=== PATIENT | female | born 1935 | race Caucasian/White ===

== ENCOUNTER 2018-11-18 12:39 | Inpatient (IN) | payer OTHER ==
[2018-11-18] MEDS ORDERED: SODIUM CHLORIDE 0.9% 1000 ML INFUS.BAG IV ONE (13:04)
[2018-11-18 13:07] VITALS: BMI 25.8
[2018-11-18] MEDS ORDERED: ONDANSETRON 4 MG/2 ML VIAL IVPUSH ONE (13:32)
--- NOTE | 2018-11-18 13:39 | PDOC ---
History of Present Illness - General Chief Complaint: Weakness Stated Complaint: WEAKNESS, N/V/D History Source: Patient, Family Exam Limitations: No Limitations - History of Present Illness Initial Comments: 11/18/18 13:35 83 yo F h/o n/v d here from [facility] assisted living. pt states sxs started three days ago, intially with vomiting, followed by dry heaving, then loose watery stools. pt states she took peptobismol, and stool and emesis have since been black. no bright red blood noted. no abd pain. does c/o low back pain. pt states today she was unabel to get out of bed due to weakness. weakness is described as generalized, nonfocal with asociated lightheadedness. no vertigo. no cp no cough but does feel sob. no fever, does report chills. no dysuria. no h /o abd surgeries. Past History - Past Medical History Allergies/Adverse Reactions: Allergies Allergy/AdvReac Type Severity Reaction Status Date / Time No Known Allergies Allergy Verified 11/18/18 12:55 Home Medications: Ambulatory Orders Asenapine [Saphris -] 5 mg SL HS 11/25/12 Olmesartan Medoxomil [Benicar] 20 mg PO DAILY 11/25/12 Candesartan Cilexetil [Atacand] 16 mg PO DAILY 11/18/18 Esomeprazole Magnesium [Nexium 24Hr] 20 mg PO DAILY 11/18/18 Venlafaxine HCl ER [Effexor Xr -] 75 mg PO DAILY 11/18/18 Anemia: Yes (2010-TREATED WITH IRON) Asthma: No Cancer: No Cardiac Disorders: No CVA: No COPD: Yes (DX 2012) CHF: No Dementia: No Diabetes: No GI Disorders: Yes (ULCERS WHEN SHE WAS IN HER 20'S) Disorders: No HTN: Yes (DX 2004) Hypercholesterolemia: No Liver Disease: No Seizures: No Thyroid Disease: No - Surgical History Abdominal Surgery: No Appendectomy: No Cardiac Surgery: No Cholecystectomy: No Lung Surgery: No Neurologic Surgery: No Orthopedic Surgery: No - Suicide/Smoking/Psychosocial Hx Smoking Status: No Smoking History: Never smoked Have you smoked in the past 12 months: No Number of Cigarettes Smoked Daily: 0 Hx Alcohol Use: No Drug/Substance Use Hx: No Substance Use Type: None Hx Substance Use Treatment: No Review of Systems - Review of Systems Constitutional: Yes: Chills. No: Diaphoresis, Fever Respiratory: Yes: Shortness of Breath. No: Cough Cardiac (ROS): No: Chest Pain, Edema ABD/GI: Yes: Diarrhea, Nausea, Vomiting : Yes: Burning, Dysuria. No: Discharge Integumentary: No: Bruising Neurological: Yes: Headache All Other Systems: Reviewed and Negative *Physical Exam - Vital Signs Last Vital Signs Temp Pulse Resp BP Pulse Ox 99.2 F 104 H 20 117/62 95 11/18/18 12:40 11/18/18 12:40 11/18/18 12:40 11/18/18 12:40 11/18/18 12:40 - Physical Exam Comments: 11/18/18 13:40 awake alert dry mucous membranes, lungs clear bilat, heart faint systolic murmur , no r/g. abd soft nontender nondistended. skin warm and dry. nuero 5/5 bilat upper ext strength, lower ext mild left leg weakness 4+/5, right leg 5/5. sensation intact bilat lower rext. no midline spinal tenderness. rectal exam good rectal tone, black stool no gross blood. speech clear. Heart Score/ECG Review #1 General ECG Interpretation: Sinus Rhythm, Normal Rate (97), Normal Intervals, No acute ischemic changes Compared to previous ECG there are: No significant change (twi, I, AVL, V5/ V6, left axis, widened qrs. bifid p wave atrial enlargement. comparison 2011) ED Treatment Course - LABORATORY CBC & Chemistry Diagram: 11/18/18 13:30 11/18/18 13:30 - RADIOLOGY Radiology Studies Ordered: Category Date Time Status HEAD CT WITHOUT CONTRAST [CT] Stat CT Scan 11/18/18 13:34 Ordered Medical Decision Making - Medical Decision Making 11/18/18 13:42 83 yo F with h/o htn here with c/o loose watery stool, n/v and fatigue, weakness. low back pain. also c/o sob. differential gi bleed, electrolyte abnomrality such as hypo/ hyperkalemia, hypercalcemia, hyponatremia, anemia, viral or infectious gastroenteritis, pancreatitis. dehydration renal failure. other infection such as uti, pna. mi plan ekg labs cxr ct head for noted left leg weakness. iv hydration antiemetics. pt will likely require admission for severe weakness. reassess. 11/18/18 14:10 d/w pt daughter and review chart shows she has h/o AVM and had GI bleeding following colonoscopy many years ago. 11/18/18 15:36 pt wtih anemia, will transfuse 2 units prbc. hgb 7.7 . dw/ dr miner, due to wednesday, no or on weekend, will require transfer to [facility] in case of upper gi source possible need for endoscopy. pt currently stable. awaiting bed [facility]. *DC/Admit/Observation/Transfer Diagnosis at time of Disposition: Anemia, GI bleed - Discharge Dispostion Condition at time of disposition: Good Decision to Admit order: Yes - Referrals Referrals: Kiera Kaiser MD [Primary Care Provider] - - Patient Instructions - Post Discharge Activity
[2018-11-18] MEDS ORDERED: ONDANSETRON 4 MG/2 ML VIAL ONE (13:51)
[2018-11-18 14:01] LABS: HEMATOCRIT 24.4 % (32.4-45.2); HEMOGLOBIN 7.7 GM/dl (10.7-15.3); MCH 25.1 pg (25.7-33.7); MCHC 31.3 g/dl (32.0-36.0); MEAN CELL VOLUME 80.1 fl (80-96); MEAN PLT VOLUME 8.1 fl (7.5-11.1); PLATELET COUNT 399 K/MM3 (134-434); RBC 3.05 M/mm3 (3.60-5.2); RDW 17.2 % (11.6-15.6); WHITE BLOOD COUNT 14.1 K/mm3 (4.0-10.8)
[2018-11-18 14:09] LABS: INR 1.3 (0.82-1.09); PROTHROMBIN TIME (PATIENT) 14.5 SEC (10.2-13.0)
[2018-11-18 14:11] LABS: ALBUMIN 3.4 g/dl (3.4-5.0); BILIRUBIN,TOTAL 0.7 mg/dl (0.2-1); CALCIUM 8.4 mg/dl (8.5-10); CREATININE 1.2 mg/dl (0.55-1.3); POTASSIUM 4.2 mmol/L (3.5-5.1); TOT PROT 6.1 g/dl (6.4-8.2)
[2018-11-18] MEDS ORDERED: PANTOPRAZOLE SODIUM 40 MG VIAL IVPUSH ONE (14:24)
[2018-11-18] MEDS ORDERED: PANTOPRAZOLE SODIUM 40 MG VIAL ONE ×2 (14:28→15:46)
--- NOTE | 2018-11-18 15:23 | HP ---
CHIEF COMPLAINT: Vomiting, loose stools, weakness PCP: Dr. Kiera Kaiser HISTORY OF PRESENT ILLNESS: 83 year-old female with a PMH significant for HTN, COPD, Type II NIDDM, PUD ( remote), lower GI bleed following colonoscopy s/p embolization (2011), and depression. One week ago patient began vomiting "orange bile." Four days ago, the emesis turned black and she started having black, loose stools. She then started taking Pepto Bismol. So for the last four days patient reports dark/ black emesis, black loose stools, and no PO intake, including medications, because her throat stewart from vomiting and she cannot swallow. She complains of profound weakness making it difficult to sit up, stand, or walk. Two days ago she fell walking to the bathroom. She states she hit her head but did not lose consciousness. She also complains of SOB and episodes of feeling clammy. She also complains of worse than usual low back pain without radiation or paresthesias. Recently hospitalized for 21 days at [facility] for depression, follows regularly with a psychiatrist. ER course (1) Hgb 7.7, BUN 44, occult stool positive (2) WBC 14.1, afebrile (3) Lactic acid 3.4 (4) NS x 2L boluses Recent Travel: No PAST MEDICAL HISTORY: Hypertension Hyperlipidemia COPD Peptic ulcer disease in 20s Large hiatal hernia Lower GI bleed Severe diverticulosis Hemorrhoids Anemia Hiatal hernia Depression PAST SURGICAL HISTORY: Embolization proximal right colon (2011) ([place]) Cataracts Left knee replacement Social History: , lives by self in [facility], 4 children, 5 grandchildren; retired bookkeeper receptionist for a [employer] Smoking: quit 40 years ago Alcohol: rare Drugs: no Family History: Mother of hepatitis from a blood transfusion after having been stabbed; father 47 likely liver failure; sister lung cancer, brother esopahageal cancer; one daughter with renal failure on HD Allergies No Known Allergies Allergy (Verified 11/18/18 12:55) HOME MEDICATIONS: Home Medications Medication Instructions Recorded Asenapine [Saphris -] 5 mg SL HS 11/25/12 Olmesartan Medoxomil [Benicar] 20 mg PO DAILY 11/25/12 Candesartan Cilexetil [Atacand] 16 mg PO DAILY 11/18/18 Esomeprazole Magnesium [Nexium 20 mg PO DAILY 11/18/18 24Hr] Venlafaxine HCl ER [Effexor Xr -] 75 mg PO DAILY 11/18/18 REVIEW OF SYSTEMS CONSTITUTIONAL: +clammy, weak, loss of appetite Absent: fever, chills, diaphoresis, weight change HEENT: +mouth and throat burning from vomiting Absent: rhinorrhea, nasal congestion, throat swelling, difficulty swallowing, mouth swelling, ear pain, eye pain, visual changes CARDIOVASCULAR: Absent: chest pain, syncope, palpitations, irregular heart rate, lightheadedness , peripheral edema RESPIRATORY: +SOB Absent: cough, shortness of breath, dyspnea with exertion, orthopnea, wheezing, stridor, hemoptysis GASTROINTESTINAL: +vomiting dark/black, black loose stools Absent: abdominal pain, abdominal distension, constipation,hematochezia GENITOURINARY: Absent: dysuria, frequency, urgency, hesitancy, hematuria, flank pain, genital pain MUSCULOSKELETAL: +back pain Absent: myalgia, arthralgia, joint swelling, neck pain SKIN: Absent: rash, itching, pallor HEMATOLOGIC/IMMUNOLOGIC: Absent: easy bleeding, easy bruising, lymphadenopathy, frequent infections ENDOCRINE: Absent: unexplained weight gain, unexplained weight loss, heat intolerance, cold intolerance NEUROLOGIC: Absent: headache, focal weakness or paresthesias, dizziness, unsteady gait, seizure, mental status changes, bladder or bowel incontinence PSYCHIATRIC: +depression Absent: suicidal or homicidal ideation, hallucinations. PHYSICAL EXAMINATION Vital Signs - 24 hr 11/18/18 11/18/18 11/18/18 12:40 14:16 14:25 Temperature 99.2 F Pulse Rate 104 H 84 Pulse Rate [ 92 H Apical] Respiratory 20 21 H Rate Blood Pressure 117/62 Blood Pressure 116/50 L [Left Arm] O2 Sat by Pulse 95 97 100 Oximetry (%) 11/18/18 11/18/18 14:50 15:10 Temperature Pulse Rate Pulse Rate [ 92 H 85 Apical] Respiratory 21 H 21 H Rate Blood Pressure Blood Pressure 118/50 L 123/56 L [Left Arm] O2 Sat by Pulse 100 100 Oximetry (%) GENERAL: Awake, alert, and fully oriented. Pale, ill appearing. HEAD: Normal with no signs of trauma. EYES: Pupils equal, round and reactive to light, extraocular movements intact, sclera anicteric, conjunctiva clear. No lid lag. EARS, NOSE, THROAT: Ears normal, nares patent, oropharynx clear without exudates. Dry, pale mucous membranes. LUNGS: Breath sounds equal, clear to auscultation bilaterally. No wheezes, and no crackles. No accessory muscle use. HEART: Regular rate and rhythm, S1 and S2 ABDOMEN: Firm, nontender, not distended, normoactive bowel sounds, no guarding, no rebound tenderness UPPER EXTREMITIES: 2+ pulses, warm, well-perfused. No cyanosis. No clubbing. No peripheral edema. LOWER EXTREMITIES: 2+ pulses, warm, well-perfused. No calf tenderness. No peripheral edema. NEUROLOGICAL: Cranial nerves II-XII intact. Normal speech. SKIN: pale, warm, dry Laboratory Results - last 24 hr 11/18/18 11/18/18 11/18/18 13:30 13:30 13:30 WBC 14.1 H RBC 3.05 L Hgb 7.7 L Hct 24.4 L D MCV 80.1 MCH 25.1 L D MCHC 31.3 L RDW 17.2 H D Plt Count 399 MPV 8.1 Absolute Neuts (auto) 11.4 Neutrophils % No Result Required. Lymphocytes % No Result Required. PT with INR INR PTT (Actin FS) 26.5 Sodium 135 L Potassium 4.2 Chloride 104 Carbon Dioxide 22 Anion Gap 9 BUN 44.0 H Creatinine 1.2 Est GFR (CKD-EPI)AfAm 47.72 Est GFR (CKD-EPI)NonAf 41.18 Random Glucose 162 H Calcium 8.4 L Total Bilirubin 0.7 AST 26 ALT 15 Alkaline Phosphatase 73 Troponin I Total Protein 6.1 L Albumin 3.4 Stool Occult Blood Crossmatch 11/18/18 11/18/18 11/18/18 13:30 13:30 13:30 WBC RBC Hgb Hct MCV MCH MCHC RDW Plt Count MPV Absolute Neuts (auto) Neutrophils % Lymphocytes % PT with INR 14.5 H INR 1.30 H PTT (Actin FS) Sodium Potassium Chloride Carbon Dioxide Anion Gap BUN Creatinine Est GFR (CKD-EPI)AfAm Est GFR (CKD-EPI)NonAf Random Glucose Calcium Total Bilirubin AST ALT Alkaline Phosphatase Troponin I < 0.03 Total Protein Albumin Stool Occult Blood Positive Crossmatch 11/18/18 14:00 WBC RBC Hgb Hct MCV MCH MCHC RDW Plt Count MPV Absolute Neuts (auto) Neutrophils % Lymphocytes % PT with INR INR PTT (Actin FS) Sodium Potassium Chloride Carbon Dioxide Anion Gap BUN Creatinine Est GFR (CKD-EPI)AfAm Est GFR (CKD-EPI)NonAf Random Glucose Calcium Total Bilirubin AST ALT Alkaline Phosphatase Troponin I Total Protein Albumin Stool Occult Blood Crossmatch See Detail ASSESSMENT/PLAN: 83 year-old female with a PMH significant for HTN, COPD, PUD (remote) lower GI bleed following colonoscopy s/p embolization (2011), and recently hospitalized for depression. Admitted for acute blood loss anemia secondary to GI bleed. Acute blood loss anemia secondary to GI bleed Severe diverticulosis --in setting of remote peptic ulcer disease x 60 years ago, and one episode of lower GI bleed following colonoscopy 2011 --Hgb 7.7, BUN 44, occult stool positive --Hgb 12.3/Hct 39.8 at last PCP visit 07/05/18 (see paper chart) --transfuse 2U now --protonix drip --GI consult Dysphagia --no PO intake x 4 days because patient feels she could not swallow --multiple attempt to pass NGT in ED unsuccessful, concern for obstructive etiology Lactic acidosis --likely from low volume state --2L NS given in ED, continue IV fluids --repeat lactic acid pending --strict I&Os Hypertension --was borderline hypotensive in ED prior to fluids --hold anti-hypertensives Hyperlipidemia --not on statin therapy COPD --stable, no home meds Type II NIDDM --HgbA1C 6.9, diet controlled per PCP records Depression --follows with Dr. Sandra, previously Dr. Lopez in [place] --recent hospitalization FEN Fluids: NS @100mL/hr Electrolytes: replete as indicated Nutrition: NPO DVT prophylaxis: hold chemical prophylaxis due to bleeding; SCDs Physical therapy Dispo: continues to require inpatient care. Transfer to [facility], waiting bed assignment. DNR/DNI; spoke with sonBradly [phone] Visit type - Emergency Visit Emergency Visit: Yes ED Registration Date: 11/18/18 Care time: The patient presented to the Emergency Department on the above date and was hospitalized for further evaluation of their emergent condition. - New Patient This patient is new to me today: Yes Date on this admission: 11/18/18 - Critical Care Critical Care patient: Yes Total Critical Care Time (in minutes): 90 Critical Care Statement: The care of this patient involved high complexity decision making to prevent further life threatening deterioration of the patient 's condition and/or to evaluate & treat vital organ system(s) failure or risk of failure.
[2018-11-18 15:27] LABS: PLATELET ESTIMATE ADEQUATE
[2018-11-18] MEDS ORDERED: SODIUM CHLORIDE 1,000 ML IV SCH (15:30)
[2018-11-18] MEDS: PANTOPRAZOLE SODIUM 80 MG in SODIUM CHLORIDE 100 ML IVPB SCH (16:08)
[2018-11-18] MEDS ORDERED: LIDOCAINE HCL 2% JELLY (5 ML/TUBE) ONE (18:26)
[2018-11-18] MEDS ORDERED: FUROSEMIDE 40 MG/4 ML INJECTABLE VIAL ONE (20:19)
[2018-11-19] MEDS ORDERED: ACETAMINOPHEN 1000 MG/100 ML VIAL (NON FORMULARY) IVPB ONE ×2 (02:41→11:54)
[2018-11-19] MEDS: PANTOPRAZOLE SODIUM 80 MG in SODIUM CHLORIDE 100 ML IVPB SCH ×3 (03:22→23:03)
[2018-11-19] MEDS ORDERED: PT OWN MED DRAWER 7, Y5N ONE ×5 (08:23→21:09)
--- NOTE | 2018-11-19 09:08 | PN ---
Physical Exam: SUBJECTIVE: Patient seen and examined; reviewed chart. No events reported per nursing. She is afebrile and hemodynamically stable this AM. Pending GI eval OBJECTIVE: Vital Signs Period Temp Pulse Resp BP Sys/Mills Pulse Ox Last 24 Hr 97.5 F-99.2 F 81-104 20-24 105-136/44-80 93-100 GENERAL: The patient is awake, alert, in no acute distress. HEAD: Normal with no signs of trauma. EYES: PERRL, extraocular movements intact, sclera anicteric, conjunctiva clear. ENT: Ears normal, nares patent, oropharynx clear without exudates. No visable dried blood. NECK: Trachea midline, full range of motion, supple. LUNGS: Breath sounds equal, clear to auscultation bilaterally, no wheezes, no crackles HEART: Regular rate and rhythm, S1, S2 without murmur, rub or gallop. ABDOMEN: Soft, nontender, nondistended, normoactive bowel sounds EXTREMITIES: 2+ pulses, warm, well-perfused, no edema. NEUROLOGICAL: Cranial nerves II through XII grossly intact. Normal speech, gait not observed. PSYCH: Normal mood, normal affect. SKIN: Warm, dry, normal turgor, no rashes or lesions noted Laboratory Results - last 24 hr 11/18/18 11/18/18 11/18/18 13:30 13:30 13:30 WBC 14.1 H RBC 3.05 L Hgb 7.7 L Hct 24.4 L D MCV 80.1 MCH 25.1 L D MCHC 31.3 L RDW 17.2 H D Plt Count 399 MPV 8.1 Absolute Neuts (auto) 11.4 Neutrophils % No Result Required. Neutrophils % (Manual) 85.0 H Lymphocytes % No Result Required. Lymphocytes % (Manual) 10.0 Monocytes % (Manual) 7 Hypochromia 2+ Platelet Estimate Adequate Microcytosis Few PT with INR INR PTT (Actin FS) Sodium 135 L Potassium 4.2 Chloride 104 Carbon Dioxide 22 Anion Gap 9 BUN 44.0 H Creatinine 1.2 Est GFR (CKD-EPI)AfAm 47.72 Est GFR (CKD-EPI)NonAf 41.18 Random Glucose 162 H Lactic Acid Calcium 8.4 L Total Bilirubin 0.7 AST 26 ALT 15 Alkaline Phosphatase 73 Troponin I Total Protein 6.1 L Albumin 3.4 Lipase 175 Urine Color Urine Appearance Urine pH Urine Protein Urine Glucose (UA) Urine Ketones Urine Blood Urine Nitrite Urine Bilirubin Urine Urobilinogen Ur Leukocyte Esterase Stool Occult Blood Blood Type Antibody Screen Crossmatch Crossmatch IS Only 11/18/18 11/18/18 11/18/18 13:30 13:30 13:30 WBC RBC Hgb Hct MCV MCH MCHC RDW Plt Count MPV Absolute Neuts (auto) Neutrophils % Neutrophils % (Manual) Lymphocytes % Lymphocytes % (Manual) Monocytes % (Manual) Hypochromia Platelet Estimate Microcytosis PT with INR 14.5 H INR 1.30 H PTT (Actin FS) 26.5 Sodium Potassium Chloride Carbon Dioxide Anion Gap BUN Creatinine Est GFR (CKD-EPI)AfAm Est GFR (CKD-EPI)NonAf Random Glucose Lactic Acid 3.4 H* Calcium Total Bilirubin AST ALT Alkaline Phosphatase Troponin I Total Protein Albumin Lipase Urine Color Urine Appearance Urine pH Urine Protein Urine Glucose (UA) Urine Ketones Urine Blood Urine Nitrite Urine Bilirubin Urine Urobilinogen Ur Leukocyte Esterase Stool Occult Blood Blood Type Antibody Screen Crossmatch Crossmatch IS Only 11/18/18 11/18/18 11/18/18 13:30 13:30 14:00 WBC RBC Hgb Hct MCV MCH MCHC RDW Plt Count MPV Absolute Neuts (auto) Neutrophils % Neutrophils % (Manual) Lymphocytes % Lymphocytes % (Manual) Monocytes % (Manual) Hypochromia Platelet Estimate Microcytosis PT with INR INR PTT (Actin FS) Sodium Potassium Chloride Carbon Dioxide Anion Gap BUN Creatinine Est GFR (CKD-EPI)AfAm Est GFR (CKD-EPI)NonAf Random Glucose Lactic Acid Calcium Total Bilirubin AST ALT Alkaline Phosphatase Troponin I < 0.03 Total Protein Albumin Lipase Urine Color Urine Appearance Urine pH Urine Protein Urine Glucose (UA) Urine Ketones Urine Blood Urine Nitrite Urine Bilirubin Urine Urobilinogen Ur Leukocyte Esterase Stool Occult Blood Positive Blood Type O POSITIVE Antibody Screen Negative Crossmatch See Detail Crossmatch IS Only See Detail 11/18/18 11/18/18 18:15 18:15 WBC RBC Hgb Hct MCV MCH MCHC RDW Plt Count MPV Absolute Neuts (auto) Neutrophils % Neutrophils % (Manual) Lymphocytes % Lymphocytes % (Manual) Monocytes % (Manual) Hypochromia Platelet Estimate Microcytosis PT with INR INR PTT (Actin FS) Sodium Potassium Chloride Carbon Dioxide Anion Gap BUN Creatinine Est GFR (CKD-EPI)AfAm Est GFR (CKD-EPI)NonAf Random Glucose Lactic Acid 1.3 Calcium Total Bilirubin AST ALT Alkaline Phosphatase Troponin I Total Protein Albumin Lipase Urine Color Yellow Urine Appearance Clear Urine pH 5.0 Urine Protein Negative Urine Glucose (UA) Negative Urine Ketones Negative Urine Blood Negative Urine Nitrite Negative Urine Bilirubin Negative Urine Urobilinogen 0.2 Ur Leukocyte Esterase Negative Stool Occult Blood Blood Type Antibody Screen Crossmatch Crossmatch IS Only Active Medications Generic Name Dose Route Start Last Admin Trade Name Freq PRN Reason Stop Dose Admin Pantoprazole Sodium 80 mg/ 100 mls @ 10 mls/hr 11/18/18 15:30 11/19/18 03:22 Sodium Chloride IVPB 10 mls/hr Q10H CLARKE Administration 8 MG/HR Sodium Chloride 1,000 mls @ 75 mls/hr 11/18/18 15:30 11/18/18 15:30 Normal Saline - IV 75 mls/hr ASDIR CLARKE Administration Asenapine Maleate [ 10 mg 11/19/18 22:00 Saphris] 10 Mg Tab SL HS CLARKE Venlafaxine HCl 150 mg 11/19/18 10:00 Effexor Xr - PO DAILY CLARKE Home meds in bag: valsartan 160, aspiurin, venlafaxine 150, nexium CXR reviewed; NGT in Original CXR reviewed Prior records reviewed ASSESSMENT/PLAN: Patient transferred to [facility] for GI evaluation for LGIB. She is hemodynamically stable and afebrile. On protonix drip, s/p 2 units XF. She was on aspirin at home. She has remote peptic ulcer disease and is s/p embolization for LGIB with Dr. Olivier. Appreciate subspecialty guidance in the management of this patient. # GI Bleed -Denies further melena or CGE since at [facility]; Hb up appropriately s/p XF. Q8H CBC x24h. -NPO, IVF, continue protonix drip, pending GI eval. XF 2U PRBC by admitting team; followup. OP Hb 06/2018 stated as 12-range; positive FOBT. Potential etiology being PUD; was on ASA 81mg PO QD at home. SCDs for DVT px. # HTN -Holding PO meds; BP controlled. Resume when tolerating PO and clinically stable. # COPD -Very evident on imaging but no aparent home medications. Needs OP PFTs; will refer on DC. She will be DCd with PRN albuterol inhaler. If she becomes symptomatic consider pulmonary consult. # Anemia -Chronic; s/p XF so iron studies, etc. as OP. # Hiatal hernia -Large; refer for OP surgical evaluation # Depression -Chronic, s/p recent hospitalization. # Lactic Acidosis -Resolved # Diverticulosis -Noted history; no BRBPR more likely upper source but will consider. # DM2 -Monitor fingersticks; hold off on SSI unless uncontrolled as NPO Code Status is DNR/I: No MOLST is filled out in chart. Will complete with 2 nurse witness within 24 hours. HCP is son. # in HCP. Dispo: Pending GI eval Visit type - Emergency Visit Emergency Visit: No - New Patient This patient is new to me today: Yes Date on this admission: 11/19/18 - Critical Care Critical Care patient: No
[2018-11-19 09:11] LABS: BASO % 0.9 % (0-2.0); EOS % 1.6 % (0-4.5); HEMATOCRIT 28.3 % (32.4-45.2); HEMOGLOBIN 9.4 GM/dL (10.7-15.3); LYMPH % 14.8 % (8-40); MCH 26.7 pg (25.7-33.7); MCHC 33.3 g/dl (32.0-36.0); MEAN PLT VOLUME 7.3 fl (7.5-11.1); MONO % 10.1 % (3.8-10.2); NEUT % 72.6 % (42.8-82.8); PLATELET COUNT 247 K/MM3 (134-434); RBC 3.54 M/mm3 (3.60-5.2); WHITE BLOOD COUNT 9.7 K/mm3 (4.0-10.0)
[2018-11-19] MEDS ORDERED: VENLAFAXINE HCL 75 MG E.R. CAPSULES (FP) PO SCH ×2 (10:00)
[2018-11-19] MEDS ORDERED: ASENAPINE 5 MG TAB SL SCH (10:00)
[2018-11-19 10:43] LABS: BLOOD UREA NITROGEN 29.1 mg/dL (7-18); CREATININE 1.1 mg/dL (0.55-1.3); POTASSIUM 3.5 mmol/L (3.5-5.1)
--- NOTE | 2018-11-19 11:01 | CON.GI ---
Consult Consult Specialty:: Gastroienterology Referred by:: Bisi Solis NP Reason for Consultation:: Hematemesis - History of Present Illness Chief Complaint: Repeated vomting of black material and black stools History of Present Illness: 83F developed N/V of black fluid leading to weakness and black stools. She takes Nexium 24 daily for acid reflux that she tells me is related to a large hiatal hernia. She has also been taking Peptol Bismol. Her GI is Dr Rainey who told her she has a large HH after has past EGD in 2011. At that time he also removed a hepatic flexure adenoma that led to a postpolypectomy bleed. She was transferred here when I did a colonoscopy on 08/17/11 and endoclipped this site as well an a visible vessel and a AVM cautery site in the proximal right colon. Moderate diverticulosis was also noted universally. She has not had a colonoscopy or EGD since then and does not want another colonoscopy ever done. She takes a daily aspirin . She was not seen by Dr Rainey while at [facility] yesterday and I am the first GI to see her. My service was never notified but I found her on the computer today. She has a DNR order - History Source History Provided By: Patient Limitations to Obtaining History: No Limitations - Past Medical History Cardio/Vascular: Yes: HTN, Hyperlipdemia Pulmonary: Yes: COPD Gastrointestinal: Yes: Diverticulosis, GERD, Hiatal Hernia, Other (hepatic flexure adenoma [place] [address] Rainey who also cauterized a right colon AVM followed by hemorrhage at these sites that I controlled with endoclips. ) Musculoskeletal: Yes: Osteoarthritis - Past Surgical History Past Surgical History: Yes: Cataract Removal (bilateral ), Colonoscopy, Joint Replacement (left TKR), Upper Endoscopy - Alcohol/Substance Use Hx Alcohol Use: Yes (rare cocktail with diner) History of Substance Use: reports: None - Smoking History Smoking history: Former smoker Have you smoked in the past 12 months: No Aproximately how many cigarettes per day: 0 If you are a former smoker, when did you quit?: quit 40 years ago - Social History Usual Living Arrangement: Alone ADL: Independent Occupation: housewife Place of : [facility] History of Recent Travel: No Home Medications - Allergies Allergies/Adverse Reactions: Allergies Allergy/AdvReac Type Severity Reaction Status Date / Time No Known Allergies Allergy Verified 11/18/18 12:55 - Home Medications Home Medications: Ambulatory Orders Asenapine Maleate [Saphris] 10 mg SL HS 11/18/18 Aspirin [Aspirin EC] 81 mg PO DAILY 11/18/18 Bismuth Subsalicylate [Pepto-Bismol -] 30 mg PO PRN 11/18/18 Esomeprazole Magnesium [Nexium 24Hr] 20 mg PO DAILY 11/18/18 Valsartan [Diovan] 160 mg PO DAILY 11/18/18 Venlafaxine HCl ER [Effexor Xr -] 150 mg PO DAILY 11/18/18 Family Disease History - Family Disease History Family Disease History: CA: Brother (esophageal cancer), Other: Father ( 47 ? cause), Mother ( transfusion related cirrhosis 80s) Review of Systems - Review of Systems Constitutional: reports: Diaphoresis, Weakness Eyes: reports: No Symptoms HENT: reports: Throat Pain (after repeated vomiting) Neck: reports: No Symptoms Cardiovascular: reports: No Symptoms Respiratory: reports: SOB on Exertion Gastrointestinal: reports: Melena, Vomiting, Vomiting Blood Genitourinary: reports: No Symptoms Musculoskeletal: reports: Back Pain, Joint Pain Physical Exam-GI Vital Signs: Vital Signs Temperature 97.5 F L 11/19/18 06:00 Pulse Rate 93 H 11/19/18 06:00 Respiratory Rate 20 11/19/18 06:00 Blood Pressure 121/54 L 11/19/18 06:00 O2 Sat by Pulse Oximetry (%) 93 L 11/19/18 00:45 CBC,CMP WBC 9.7 K/mm3 (4.0-10.0) 11/19/18 08:40 RBC 3.54 M/mm3 (3.60-5.2) L 11/19/18 08:40 Hgb 9.4 GM/dL (10.7-15.3) L 11/19/18 08:40 Hct 28.3 % (32.4-45.2) L 11/19/18 08:40 MCV 80.0 fl (80-96) 11/19/18 08:40 MCH 26.7 pg (25.7-33.7) D 11/19/18 08:40 MCHC 33.3 g/dl (32.0-36.0) 11/19/18 08:40 RDW 17.0 % (11.6-15.6) H 11/19/18 08:40 Plt Count 247 K/MM3 (134-434) 11/19/18 08:40 MPV 7.3 fl (7.5-11.1) L 11/19/18 08:40 Absolute Neuts (auto) 7.0 K/mm3 (1.5-8.0) 11/19/18 08:40 Neutrophils % 72.6 % (42.8-82.8) 11/19/18 08:40 Neutrophils % (Manual) 85.0 % (42.8-82.8) H 11/18/18 13:30 Lymphocytes % 14.8 % (8-40) 11/19/18 08:40 Lymphocytes % (Manual) 10.0 % (8-40) 11/18/18 13:30 Monocytes % 10.1 % (3.8-10.2) 11/19/18 08:40 Monocytes % (Manual) 7 % (3.8-10.2) 11/18/18 13:30 Eosinophils % 1.6 % (0-4.5) 11/19/18 08:40 Basophils % 0.9 % (0-2.0) 11/19/18 08:40 Nucleated RBC % 0 % (0-0) 11/19/18 08:40 Hypochromia 2+ 11/18/18 13:30 Platelet Estimate Adequate 11/18/18 13:30 Microcytosis Few 11/18/18 13:30 Sodium 142 mmol/L (136-145) 11/19/18 08:40 Potassium 3.5 mmol/L (3.5-5.1) 11/19/18 08:40 Chloride 109 mmol/L (98-107) H 11/19/18 08:40 Carbon Dioxide 26 mmol/L (21-32) 11/19/18 08:40 Anion Gap 6 MMOL/L (8-16) L 11/19/18 08:40 BUN 29.1 mg/dL (7-18) H 11/19/18 08:40 Creatinine 1.1 mg/dL (0.55-1.3) 11/19/18 08:40 Est GFR (CKD-EPI)AfAm 53.02 11/19/18 08:40 Est GFR (CKD-EPI)NonAf 45.74 11/19/18 08:40 Random Glucose 113 mg/dL (74-106) H 11/19/18 08:40 Lactic Acid 1.3 mmol/L (0.4-2.0) 11/18/18 18:15 Calcium 8.0 mg/dL (8.5-10.1) L 11/19/18 08:40 Total Bilirubin 0.7 mg/dl (0.2-1) 11/18/18 13:30 AST 26 U/L (15-37) 11/18/18 13:30 ALT 15 U/L (13-61) 11/18/18 13:30 Alkaline Phosphatase 73 U/L (45-117) 11/18/18 13:30 Troponin I < 0.03 ng/ml (0.00-0.05) 11/18/18 13:30 Total Protein 6.1 g/dl (6.4-8.2) L 11/18/18 13:30 Albumin 3.4 g/dl (3.4-5.0) 11/18/18 13:30 Lipase 175 U/L (73-393) 11/18/18 13:30 Current Medications Generic Name Dose Route Start Last Admin Trade Name Joseq PRN Reason Stop Dose Admin Pantoprazole Sodium 80 mg/ 100 mls @ 10 mls/hr 11/18/18 15:30 11/19/18 03:22 Sodium Chloride IVPB 10 mls/hr Q10H CLARKE Administration 8 MG/HR Sodium Chloride 1,000 mls @ 75 mls/hr 11/18/18 15:30 11/18/18 15:30 Normal Saline - IV 75 mls/hr ASDIR CLARKE Administration Asenapine Maleate [ 10 mg 11/19/18 22:00 Saphris] 10 Mg Tab SL HS CLARKE Constitutional: Yes: Calm HENT: Yes: Atraumatic Neck: Yes: Trachea Midline Cardiovascular: Yes: Regular Rate and Rhythm Respiratory: Yes: CTA Bilaterally Gastrointestinal Inspection: Yes: WNL ...Auscultate: Yes: Normoactive Bowel Sounds ...Palpate: Yes: Soft, Other (nontender) ...Rectal Exam: Yes: Guaiac Positive (black g positive stool) Edema: No Peripheral Pulses WNL: Yes Psychiatric: Yes: Alert, Oriented Labs: CBC, BMP 11/19/18 08:40 11/19/18 08:40 INR, PTT INR 1.30 (0.82-1.09) H 11/18/18 13:30 Laboratory Tests 11/18/18 11/18/18 13:30 18:15 Lactic Acid 3.4 H* 1.3 Problem List - Problems (1) Hematemesis/vomiting blood Assessment/Plan: Suspect bleeding from GERD or a Leander ulcer ( ulcer within a hiatal hernia) but may alternatively have a gastric or duodenal ulcer or gastritis related to aspirin usage. I have proposed an EGD and contained informed consent Code(s): K92.0 - HEMATEMESIS Qualifiers: Nausea presence: with nausea Qualified Code(s): K92.0 - Hematemesis (2) Diverticulosis Code(s): K57.90 - DVRTCLOS OF INTEST, PART UNSP, W/O PERF OR ABSCESS W/O BLEED (3) COPD (chronic obstructive pulmonary disease) Code(s): J44.9 - CHRONIC OBSTRUCTIVE PULMONARY DISEASE, UNSPECIFIED (4) HTN (hypertension) Code(s): I10 - ESSENTIAL (PRIMARY) HYPERTENSION (5) Hyperlipidemia Code(s): E78.5 - HYPERLIPIDEMIA, UNSPECIFIED (6) Hiatal hernia with gastroesophageal reflux disease and esophagitis Code(s): K44.9 - DIAPHRAGMATIC HERNIA WITHOUT OBSTRUCTION OR GANGRENE; K21.0 - GASTRO-ESOPHAGEAL REFLUX DISEASE WITH ESOPHAGITIS (7) Colon adenoma Code(s): D12.6 - BENIGN NEOPLASM OF COLON, UNSPECIFIED (8) Angiodysplasia of colon Code(s): K55.20 - ANGIODYSPLASIA OF COLON WITHOUT HEMORRHAGE (9) Anemia Code(s): D64.9 - ANEMIA, UNSPECIFIED (10) GI bleed Code(s): K92.2 - GASTROINTESTINAL HEMORRHAGE, UNSPECIFIED Assessment/Plan Assessment : - Suspect bleeding from GERD or a Leander ulcer ( ulcer within a hiatal hernia) given her h/o a large HH but may alternatively have a gastric or duodenal ulcer or gastritis related to aspirin usage. - Personal h/o postpolyectomy bleed - Personal h/o right colon angiodysplasia. - Diverticulosis Plan: -- I have proposed an EGD and informed Lexy and her daughter of [facility] potential for such complications as perforation and hemorrhage. We discussed her DNR state and she wants it reversed for the purposes of this procedure. She has signed an informed consent. I have scheduled it for 11/21 but will do it sooner if necessary -- Continue PPI drip -- Trial of clear liquids
[2018-11-19] MEDS ORDERED: MAG HYDROX/AL HYDROX/SIMETH 30 ML UNIT-DOSE CUP PO PRN (11:26)
[2018-11-19] MEDS: D5-1/2NS+10 MEQ KCL - 10 MEQ/1,000 ML INFUS.BAG IV SCH (11:38)
[2018-11-19 12:47] LABS: BASO % 0.5 % (0-2.0); EOS % 1.3 % (0-4.5); HEMATOCRIT 30.3 % (32.4-45.2); HEMOGLOBIN 10.1 GM/dL (10.7-15.3); LYMPH % 15.3 % (8-40); MCH 26.8 pg (25.7-33.7); MCHC 33.4 g/dl (32.0-36.0); MEAN CELL VOLUME 80.3 fl (80-96); MEAN PLT VOLUME 7.5 fl (7.5-11.1); NEUT % 72.9 % (42.8-82.8); PLATELET COUNT 275 K/MM3 (134-434); RBC 3.77 M/mm3 (3.60-5.2); RDW 17.2 % (11.6-15.6); WHITE BLOOD COUNT 10.6 K/mm3 (4.0-10.0)
--- NOTE | 2018-11-19 18:59 | EKG ---
Test Reason : Blood Pressure : / mmHG Vent. Rate : 097 BPM Atrial Rate : 097 BPM P-R Int : 124 ms QRS Dur : 120 ms QT Int : 416 ms P-R-T Axes : 061 -25 137 degrees QTc Int : 528 ms NORMAL SINUS RHYTHM LEFT BUNDLE BRANCH BLOCK ABNORMAL ECG WHEN COMPARED WITH ECG OF 17-AUG-2011 09:16, COMPARED TO EKG NO SIGNIFICANT CHANGE IS FOUND Confirmed by KERVIN ROJO MD ([id number]) on 11/19/2018 6:59:00 PM Referred By: DR MENESES Confirmed By:KERVIN ROJO MD
[2018-11-19] MEDS: ASENAPINE MALEATE 10 MG SL SCH (21:40)
[2018-11-20 07:40] LABS: BASO % 0.5 % (0-2.0); EOS % 0.9 % (0-4.5); HEMATOCRIT 30.1 % (32.4-45.2); HEMOGLOBIN 10.1 GM/dL (10.7-15.3); MCH 26.9 pg (25.7-33.7); MCHC 33.6 g/dl (32.0-36.0); MEAN CELL VOLUME 80.1 fl (80-96); MEAN PLT VOLUME 7.7 fl (7.5-11.1); MONO % 11.3 % (3.8-10.2); NEUT % 73.3 % (42.8-82.8); PLATELET COUNT 283 K/MM3 (134-434); RBC 3.76 M/mm3 (3.60-5.2); RDW 17.3 % (11.6-15.6); WHITE BLOOD COUNT 10.4 K/mm3 (4.0-10.0)
[2018-11-20 07:49] LABS: BLOOD UREA NITROGEN 18.2 mg/dL (7-18); CALCIUM 8.3 mg/dL (8.5-10.1); CREATININE 0.9 mg/dL (0.55-1.3); POTASSIUM 3.4 mmol/L (3.5-5.1)
[2018-11-20] MEDS: PANTOPRAZOLE SODIUM 80 MG in SODIUM CHLORIDE 100 ML IVPB SCH ×3 (08:19→17:32)
--- NOTE | 2018-11-20 09:18 | PN ---
Physical Exam: SUBJECTIVE: Patient seen and examined; Hb stable. Slightly tachy this AM. GI saw; planning on scope tomorrow AM unless she clinically declines. Consented for EGD and DNR reversed for procedure. Continue PPI drip and clear liquid trial. APAP given for chronic back pain with no red flag symptoms. MOLST to be signed. 10 sys ROS done and negative aside from HPI OBJECTIVE: Vital Signs Period Temp Pulse Resp BP Sys/Mills Pulse Ox Last 24 Hr 98.0 F-99.7 F 81-100 20-20 104-136/53-65 GENERAL: The patient is awake, alert, in no acute distress. HEAD: Normal with no signs of trauma. EYES: PERRL, extraocular movements intact, sclera anicteric, conjunctiva clear. ENT: Ears normal, nares patent, oropharynx clear without exudates. No visable dried blood. NECK: Trachea midline, full range of motion, supple. LUNGS: Breath sounds equal, clear to auscultation bilaterally, no wheezes, no crackles HEART: Regular rate and rhythm, S1, S2 without murmur, rub or gallop. ABDOMEN: Soft, nontender, nondistended, normoactive bowel sounds EXTREMITIES: 2+ pulses, warm, well-perfused, no edema. NEUROLOGICAL: Cranial nerves II through XII grossly intact. Normal speech, gait not observed. No saddle anesthesia or point tenderness. PSYCH: Normal mood, normal affect. SKIN: Warm, dry, normal turgor, no rashes or lesions noted Laboratory Results - last 24 hr 11/19/18 11/19/18 11/20/18 08:40 11:52 07:04 WBC 10.6 H RBC 3.77 Hgb 10.1 L Hct 30.3 L MCV 80.3 MCH 26.8 MCHC 33.4 RDW 17.2 H Plt Count 275 MPV 7.5 Absolute Neuts (auto) 7.7 Neutrophils % 72.9 Lymphocytes % 15.3 Monocytes % 10.0 Eosinophils % 1.3 Basophils % 0.5 Nucleated RBC % 0 Sodium 142 140 Potassium 3.5 3.4 L Chloride 109 H 106 Carbon Dioxide 26 25 Anion Gap 6 L 9 BUN 29.1 H 18.2 H Creatinine 1.1 0.9 Est GFR (CKD-EPI)AfAm 53.02 67.57 Est GFR (CKD-EPI)NonAf 45.74 58.30 Random Glucose 113 H 123 H Calcium 8.0 L 8.3 L 11/20/18 07:04 WBC 10.4 H RBC 3.76 Hgb 10.1 L Hct 30.1 L MCV 80.1 MCH 26.9 MCHC 33.6 RDW 17.3 H Plt Count 283 MPV 7.7 Absolute Neuts (auto) 7.6 Neutrophils % 73.3 Lymphocytes % 14.0 Monocytes % 11.3 H Eosinophils % 0.9 Basophils % 0.5 Nucleated RBC % 0 Sodium Potassium Chloride Carbon Dioxide Anion Gap BUN Creatinine Est GFR (CKD-EPI)AfAm Est GFR (CKD-EPI)NonAf Random Glucose Calcium Active Medications Generic Name Dose Route Start Last Admin Trade Name Freq PRN Reason Stop Dose Admin Al Hydroxide/Mg Hydroxide 30 ml 11/19/18 11:26 Mylanta Oral Suspension - PO Q6H PRN DYSPEPSIA Pantoprazole Sodium 80 mg/ 100 mls @ 10 mls/hr 11/18/18 15:30 11/20/18 08:19 Sodium Chloride IVPB Not Given Q10H CLARKE 8 MG/HR Potassium Chloride/Dextrose/Sod Cl 10 meq in 1,000 mls @ 42 mls/hr 11/19/18 11 :30 11/19/18 11:38 D5-1/2ns+10 Meq Kcl - IV 42 mls/hr ASDIR CLARKE Administration Asenapine Maleate [ 10 mg 11/19/18 22:00 11/19/18 21:40 Saphris] 10 Mg Tab SL 10 mg HS CLARKE Administration ASSESSMENT/PLAN: Patient presents with GIB; Dr. Olivier GI following. # GI Bleed -H/H stable; tachy noted. Monitor on floor. EGD in AM. -NPO, IVF, continue protonix drip, clear liquid trial. - XF 2U PRBC by admitting team; followup. OP Hb 06/2018 stated as 12-range; positive FOBT. Potential etiology being PUD; was on ASA 81mg PO QD at home. SCDs for DVT px. # HTN -Holding PO meds; BP controlled. Resume when tolerating PO and clinically stable. # COPD -Very evident on imaging but no aparent home medications. Needs OP PFTs; will refer on DC. She will be DCd with PRN albuterol inhaler. If she becomes symptomatic consider pulmonary consult. # Anemia -Chronic; s/p XF so iron studies, etc. as OP. # Hiatal hernia -Large; refer for OP surgical evaluation # Depression -Chronic, s/p recent hospitalization. # Lactic Acidosis -Resolved # Diverticulosis -Noted history; no BRBPR more likely upper source but will consider. # DM2 -Monitor fingersticks; hold off on SSI unless uncontrolled as NPO Completing molst Dispo: EGD tomorrow; dispo pending results Visit type - Emergency Visit Emergency Visit: No - New Patient This patient is new to me today: No - Critical Care Critical Care patient: No
--- NOTE | 2018-11-20 11:44 | PN.GI ---
GI Progress Note Subjective: GI NOte; No melena. Tolerating diet. Hb stable - Objective Vital Signs: Vital Signs Temperature 98.3 F 11/20/18 10:00 Pulse Rate 104 H 11/20/18 10:00 Respiratory Rate 20 11/20/18 10:00 Blood Pressure 132/67 11/20/18 10:00 O2 Sat by Pulse Oximetry (%) 93 L 11/19/18 00:45 Laboratory Tests 11/19/18 11/19/18 11/20/18 08:40 11:52 07:04 Hgb 10.1 L Potassium 3.4 L BUN 29.1 H 18.2 H Creatinine 1.1 0.9 11/20/18 07:04 Hgb 10.1 L Potassium BUN Creatinine Constitutional: Calm ...Auscultate: Yes: Normoactive Bowel Sounds ...Palpate: Yes: Soft, Other (nontender) Labs: CBC, BMP 11/20/18 07:04 11/20/18 07:04 INR, PTT INR 1.30 (0.82-1.09) H 11/18/18 13:30 Assessment/Plan Assessment : - Suspect bleeding from GERD or a Leander ulcer ( ulcer within a hiatal hernia) given her h/o a large HH but may alternatively have a gastric or duodenal ulcer or gastritis related to aspirin usage. - Personal h/o postpolyectomy bleed - Personal h/o right colon angiodysplasia. - Diverticulosis Plan: -- For EGD tomorrow. We discussed her DNR state and she wants it reversed for the purposes of this procedure. She has signed an informed consent. -- Continue PPI drip -- Trial of full liquids Problem List - Problems (1) Hematemesis/vomiting blood Code(s): K92.0 - HEMATEMESIS Qualifiers: Nausea presence: with nausea Qualified Code(s): K92.0 - Hematemesis (2) Diverticulosis Code(s): K57.90 - DVRTCLOS OF INTEST, PART UNSP, W/O PERF OR ABSCESS W/O BLEED (3) COPD (chronic obstructive pulmonary disease) Code(s): J44.9 - CHRONIC OBSTRUCTIVE PULMONARY DISEASE, UNSPECIFIED (4) HTN (hypertension) Code(s): I10 - ESSENTIAL (PRIMARY) HYPERTENSION (5) Hyperlipidemia Code(s): E78.5 - HYPERLIPIDEMIA, UNSPECIFIED (6) Hiatal hernia with gastroesophageal reflux disease and esophagitis Code(s): K44.9 - DIAPHRAGMATIC HERNIA WITHOUT OBSTRUCTION OR GANGRENE; K21.0 - GASTRO-ESOPHAGEAL REFLUX DISEASE WITH ESOPHAGITIS (7) Colon adenoma Code(s): D12.6 - BENIGN NEOPLASM OF COLON, UNSPECIFIED (8) Angiodysplasia of colon Code(s): K55.20 - ANGIODYSPLASIA OF COLON WITHOUT HEMORRHAGE (9) Anemia Code(s): D64.9 - ANEMIA, UNSPECIFIED (10) GI bleed Code(s): K92.2 - GASTROINTESTINAL HEMORRHAGE, UNSPECIFIED
[2018-11-20] MEDS: D5-1/2NS+10 MEQ KCL - 10 MEQ/1,000 ML INFUS.BAG IV SCH ×2 (12:30→17:06)
[2018-11-20] MEDS ORDERED: ACETAMINOPHEN 1000 MG/100 ML VIAL (NON FORMULARY) IVPB PRN (12:33)
[2018-11-20] MEDS ORDERED: POTASSIUM CHLORIDE ORAL LIQUID 20 MEQ/15 ML PO ONE (12:35)
[2018-11-20] MEDS ORDERED: PT OWN MED DRAWER 7, Y5N ONE (12:59)
[2018-11-20] MEDS: ASENAPINE MALEATE 10 MG SL SCH (21:18)
[2018-11-21] MEDS: PANTOPRAZOLE SODIUM 80 MG in SODIUM CHLORIDE 100 ML IVPB SCH ×2 (03:54→17:34)
[2018-11-21 08:22] LABS: BASO % 0.6 % (0-2.0); EOS % 1.6 % (0-4.5); HEMATOCRIT 31.7 % (32.4-45.2); HEMOGLOBIN 10.5 GM/dL (10.7-15.3); LYMPH % 18.4 % (8-40); MCHC 33.2 g/dl (32.0-36.0); MEAN CELL VOLUME 81.6 fl (80-96); MEAN PLT VOLUME 7.9 fl (7.5-11.1); MONO % 10.8 % (3.8-10.2); NEUT % 68.6 % (42.8-82.8); PLATELET COUNT 342 K/MM3 (134-434); RBC 3.88 M/mm3 (3.60-5.2); RDW 17.5 % (11.6-15.6); WHITE BLOOD COUNT 8.4 K/mm3 (4.0-10.0)
[2018-11-21 08:24] LABS: INR 1.15 (0.83-1.09); PROTHROMBIN TIME (PATIENT) 13.6 SEC (9.7-13.0)
[2018-11-21 08:45] LABS: BLOOD UREA NITROGEN 13.2 mg/dL (7-18); CALCIUM 8.4 mg/dL (8.5-10.1); CREATININE 1.1 mg/dL (0.55-1.3); POTASSIUM 3.8 mmol/L (3.5-5.1)
--- NOTE | 2018-11-21 10:54 | PN ---
Progress Note (short form) - Note Progress Note: GI Procedure Note: Please see scanned EGD report. Bleeding has resolved and appears to have been emanating from a Leander ulcer within her large hiatal hernia and very likely related to NSAID usage. I have advised her with her daughter present to avoid NSAIDs. No GI objections to discharge on Pantoprazole 40mg qhs. Problem List - Problems (1) Hematemesis/vomiting blood Code(s): K92.0 - HEMATEMESIS Qualifiers: Nausea presence: with nausea Qualified Code(s): K92.0 - Hematemesis (2) Diverticulosis Code(s): K57.90 - DVRTCLOS OF INTEST, PART UNSP, W/O PERF OR ABSCESS W/O BLEED (3) COPD (chronic obstructive pulmonary disease) Code(s): J44.9 - CHRONIC OBSTRUCTIVE PULMONARY DISEASE, UNSPECIFIED (4) HTN (hypertension) Code(s): I10 - ESSENTIAL (PRIMARY) HYPERTENSION (5) Hyperlipidemia Code(s): E78.5 - HYPERLIPIDEMIA, UNSPECIFIED (6) Hiatal hernia with gastroesophageal reflux disease and esophagitis Code(s): K44.9 - DIAPHRAGMATIC HERNIA WITHOUT OBSTRUCTION OR GANGRENE; K21.0 - GASTRO-ESOPHAGEAL REFLUX DISEASE WITH ESOPHAGITIS (7) Colon adenoma Code(s): D12.6 - BENIGN NEOPLASM OF COLON, UNSPECIFIED (8) Angiodysplasia of colon Code(s): K55.20 - ANGIODYSPLASIA OF COLON WITHOUT HEMORRHAGE (9) Anemia Code(s): D64.9 - ANEMIA, UNSPECIFIED (10) GI bleed Code(s): K92.2 - GASTROINTESTINAL HEMORRHAGE, UNSPECIFIED
--- NOTE | 2018-11-21 11:50 | CONSULT ---
Admitting History and Physical - Primary Care Physician PCP: Chon Soto - Admission History of Present Illness: Per EMR-at [facility]- 83 year-old female with a PMH significant for HTN, COPD, Type II NIDDM, PUD ( remote), lower GI bleed following colonoscopy s/p embolization (2011), and depression. One week ago patient began vomiting "orange bile." Four days ago, the emesis turned black and she started having black, loose stools. She then started taking Pepto Bismol. So for the last four days patient reports dark/ black emesis, black loose stools, and no PO intake, including medications, because her throat stewart from vomiting and she cannot swallow. She complains of profound weakness making it difficult to sit up, stand, or walk. Two days ago she fell walking to the bathroom. She states she hit her head but did not lose consciousness. She also complains of SOB and episodes of feeling clammy. She also complains of worse than usual low back pain without radiation or paresthesias. Recently hospitalized for 21 days at [facility] for depression, follows regularly with a psychiatrist. Pt transferred to [facility]. Scanned EGD report. Per Dr. Olivier-Bleeding has resolved and appears to have been emanating from a Leander ulcer within her large hiatal hernia and very likely related to NSAID usage. This isw my first consult with this pt. History Source: Patient, Family Member Limitations to Obtaining History: No Limitations - Past Medical History Cardiovascular: Yes: HTN, Hyperlipdemia Pulmonary: Yes: COPD Gastrointestinal: Yes: Diverticulosis, GERD, Hiatal Hernia, Other (hepatic flexure adenoma [place] [address] Rainey who also cauterized a right colon AVM followed by hemorrhage at these sites that I controlled with endoclips. ) Musculoskeletal: Yes: Osteoarthritis - Past Surgical History Past Surgical History: Yes: Cataract Removal (bilateral ), Colonoscopy, Joint Replacement (left TKR), Upper Endoscopy - Advance Directives Advance Directives: Yes: DNR - Smoking History Smoking history: Former smoker Have you smoked in the past 12 months: No Aproximately how many cigarettes per day: 0 If you are a former smoker, when did you quit?: quit 40 years ago - Alcohol/Substance Use Hx Alcohol Use: Yes (rare cocktail with diner) History of Substance Use: reports: None - Social History ADL: Independent Occupation: housewife History of Recent Travel: No History - Admission Reason For Visit: WEAKNESS, N/V/D - General Mental Status: Alert and Oriented, Awake and Alert, Able to Follow Commands Attention: Intact Ability to Follow Directions: Excellent Head/Neck Control: WFL - Hearing Hearing: Normal Hearing: Normal Speech Evaluation - Communication Primary Language: ESTONIAN Communication: Yes: Within Normal Limits Oral Expression Ability: Yes: No Impairment - Speech Production Able to Make Needs Known: Yes: WNL Intelligibility: Yes: WNL - Speech Characteristics Voice Loudness: Normal Voice Pitch: Yes: Normal Voice Phonatory-based Quality: Yes: Normal Speech Pattern: Normal Speech Clarity: < 100% Nasal Resonance: Normal Articulation: Yes: Precise - Language/Auditory Comprehension Follows: Yes: 2 Stage Simple Commands Observation: Able to respond to yes/no queries: Yes, Yes/No Confusion: No, Comprehends Conversational Speech: Yes - Language/Verbal Expression Able to Respond to Simple Queries: Yes: WNL Able to Communicate Wants and Needs: Yes: WNL Functional Communication Status: Yes: WNL - Swallow Evaluation/Bedside Assessment Current Nutritional Intake: Regular, Thin Liquids Oral Secretions: Yes: WFL Dentition: Yes: Adequate Facial Symmetry at Rest: Facial Droop Left Facial Symmetry on Retraction: Symmetrical Facial Movement: Controlled Against Resistance Opening: Normal Against Resistance Closing: Normal Pucker Lips: Normal Smile: Normal Lingual Movement: Normal, Symmetric Lingual Speed of Movement: Normal Lingual Movement Strgth Against Opposition: Normal Lingual Movement Characteristics: Normal Velopharyngeal Movement: Normal Laryngeal Elevation: WFL Laryngeal Movement: Able to Palpate Rate of Intake: WFL Bolus Size: WFL Labial Seal: WFL Chewing: WFL Oral Prep Time: WFL A-P Transit: WFL Pocketing: None Timing of Swallow: WFL Coughing/Throat Clear: No Change in Voice: No Recommendations - Speech Evaluation, Impression/Plan Impression: EGD noted. Swallowing overtly intact. Pt reports intermittent Dysphagia for pills only. - Dysphagia Impressions/Plan Dysphagia Impressions: Minimal Impairment *Silent aspiration: cannot be R/O at bedside Recommendations: Other (Drnk before taking pills. Take sufficient water to clear pills throught oral/pharyngeal/esophageal stages. If difficulty with pills persists, consult MD/Pharmacist regarding coiled tubing supervisor's guideline to crush/ cut pill or change pill to other,if necc) - Recommendations Diet Consistency: Regular Medication Administration: Whole with water Liquids: Thin Liquids
[2018-11-21 16:17] VITALS: TEMP 99
[2018-11-21 17:26] VITALS: BP 157/78; PULSE 100
[2018-11-21] MEDS: D5-1/2NS+10 MEQ KCL - 10 MEQ/1,000 ML INFUS.BAG IV SCH (17:34)
--- NOTE | 2018-11-21 18:03 | PN ---
Teaching Attending Note Name of Resident: Hai Chavez ATTENDING PHYSICIAN STATEMENT I saw and evaluated the patient. I reviewed the resident's note and discussed the case with the resident. I agree with the resident's findings and plan as documented. DOA noted; DOD today Admitting diagnosis: GIB DC Dx: Same, 2/2 leander ulcer and NSAID use Procedures: EGD, Dr. Olivier ("Leander ulcer within her large hiatal hernia and very likely related to NSAID usage. I have advised her with her daughter present to avoid NSAIDs. No GI objections to discharge on Pantoprazole 40mg qhs. "). All GI recs followed and will be sent home on appropriate aforementioned medications. Complications: None evident Consults: Gastroenterology Dispo: Home; discussed with son and will arrange for [employer]/VNS S: Seen and examined; no complaints. No further bleeding noted, no abdominal pain. Is s/p EGD tolerated well results discussed. GI OK to take home. Discussed with her son yesterday and she is clear for DC. O: NAD, AAOx2, resting in bed, dementia evident but pleasant NC AT EOMI PERRLA Neck supple, midline trachea, no LN RRR s1/2 Lungs CTAB, w/ sym exp NT ND +BS Moves all 4 ext with normal muscle tone and strength Normal mood, confused, appropriate behavior CN2-12 wnl, no fnds # GI Bleed -H/H stable; tachy noted. Monitor on floor. EGD in AM. -NPO, IVF, continue protonix drip, clear liquid trial. - XF 2U PRBC by admitting team; followup. OP Hb 06/2018 stated as 12-range; positive FOBT. Potential etiology being PUD; was on ASA 81mg PO QD at home. SCDs for DVT px. # HTN -Resume home meds at DC; followup with PCP # COPD -DC with PRN albuterol and pulmonary referral; no exacerbation but should have PFTs. She is DNR/I but this is easily managable if she has underlying obstruction and could be quite easily construed as comfort related measure. # Anemia -Chronic; s/p XF so iron studies, etc. as OP. # Hiatal hernia -Large; refer for OP surgical evaluation to Dr. Casiano if desired. Indicated on DCS. Noted that she has leander ulcer likely 2/2 this with NSAID use. # Depression -Chronic, s/p recent hospitalization. 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 Followup with PCP and consider neuropsych/geriatric psych eval. # Lactic Acidosis -Resolved # Diverticulosis -Noted history; no BRBPR more likely upper source but will consider. # DM2 -Monitor fingersticks; hold off on SSI unless uncontrolled as NPO Full Codee
[2018-11-21] MEDS ORDERED: PT OWN MED DRAWER 7, Y5N ONE (18:39)
--- NOTE | 2018-11-21 22:05 | DS ---
Physical Exam: SUBJECTIVE: Patient seen and examined at bedside. OBJECTIVE: Vital Signs Period Temp Pulse Resp BP Sys/Mills Pulse Ox Last 24 Hr 98.1 F-99 F 83-100 14-22 102-157/59-97 92-99 PHYSICAL EXAM GENERAL: AAOx2 in no acute distress. HEAD: Normal with no signs of trauma. EYES: PERRL, extraocular movements intact, sclera anicteric, conjunctiva clear. ENT: Ears normal, nares patent, oropharynx clear without exudates, moist mucous membranes. NECK: Trachea midline, full range of motion, supple. LUNGS: Breath sounds equal, clear to auscultation bilaterally, no wheezes, no crackles, no accessory muscle use. HEART: Regular rate and rhythm, S1, S2 without murmur, rub or gallop. ABDOMEN: Soft, nontender, nondistended, normoactive bowel sounds, no guarding, no rebound, no hepatosplenomegaly, no masses. EXTREMITIES: 2+ pulses, warm, well-perfused, no edema. NEUROLOGICAL: Cranial nerves II through XII grossly intact. Normal speech, gait not observed. PSYCH: Normal mood, normal affect. SKIN: Warm, dry, normal turgor, no rashes or lesions noted. LABS Laboratory Results - last 24 hr 11/18/18 11/21/18 11/21/18 14:00 07:36 07:36 WBC 8.4 RBC 3.88 Hgb 10.5 L Hct 31.7 L MCV 81.6 MCH 27.0 MCHC 33.2 RDW 17.5 H Plt Count 342 D MPV 7.9 Absolute Neuts (auto) 5.8 Neutrophils % 68.6 Lymphocytes % 18.4 D Monocytes % 10.8 H Eosinophils % 1.6 Basophils % 0.6 Nucleated RBC % 0 PT with INR 13.60 H INR 1.15 H Sodium Potassium Chloride Carbon Dioxide Anion Gap BUN Creatinine Est GFR (CKD-EPI)AfAm Est GFR (CKD-EPI)NonAf Random Glucose Calcium Blood Type O POSITIVE Antibody Screen Negative Crossmatch See Detail Crossmatch IS Only See Detail 11/21/18 07:36 WBC RBC Hgb Hct MCV MCH MCHC RDW Plt Count MPV Absolute Neuts (auto) Neutrophils % Lymphocytes % Monocytes % Eosinophils % Basophils % Nucleated RBC % PT with INR INR Sodium 140 Potassium 3.8 Chloride 104 Carbon Dioxide 23 Anion Gap 13 BUN 13.2 Creatinine 1.1 Est GFR (CKD-EPI)AfAm 53.02 Est GFR (CKD-EPI)NonAf 45.74 Random Glucose 273 H Calcium 8.4 L Blood Type Antibody Screen Crossmatch Crossmatch IS Only HOSPITAL COURSE: Date of Admission:11/18/18 Date of Discharge: 11/21/18 The pt was admitted for GIB and was treated with NPO, IVF, protonix drip. She was given 2 PRBCs by admitting team. She had positive FOBT. She had an EGD, which revealed a mayra ulcer and large hiatal hernia. The ulcer was likely 2/ 2 NSAID usage. Hb was stable following procedure. She was given instructions to avoid NSAIDs and to follow up with GI. Her HTN was not treated inpt as her BP was questionable in the setting of GIB. Pt's COPD was treated with PRN albuterol and pulmonary referral. She was not in exacerbation but PFTs were recommended for her. The patient's chronic anemia was noted and her Hb was augmented with transfusions. She is DNR/I but this is easily managable if she has underlying obstruction and could be quite easily construed as comfort related measure. For Her Hiatal hernia, she was given a referral for surgical evaluation with Dr. Casiano if desired. Her Depression is a chronic issue and she was given instructions to f/u with PCP and consider neuropsych/geriatric psych evaluation. Pt is stable for discharge. Minutes to complete discharge: 30 Discharge Summary Reason For Visit: WEAKNESS, N/V/D Condition: Good - Instructions Diet, Activity, Other Instructions: You were in the hospital because of a GI bleed. You had an EGD done by Dr. Olivier that showed mayra ulcers and were placed on PO protonix and should followup with your own GI within 1 week. You need to follow up with the following doctors: Dr. Kiera Kaiser, 3-[address] Rainey, GI 1 week You are being sent home with the following medications: Pantoprazole 40mg at night Do not take Aspirin until you see your doctor. Do not use NSAIDS (antiinflammatory) at all. These contributed to your bleeding. Continue your other medications as before. If your symptoms get worse, call your doctor or return to the emergency department. This includes bleding, abdominal pain, etc. Referrals: Arias Rainey MD [Staff Physician] - 1 Week Kiera Kaiser MD [Primary Care Provider] - 11/24/18 Disposition: HOME - Home Medications Comprehensive Discharge Medication List: Ambulatory Orders Asenapine Maleate [Saphris] 10 mg SL HS 11/18/18 Bismuth Subsalicylate [Pepto-Bismol -] 30 mg PO PRN 11/18/18 Valsartan [Diovan] 160 mg PO DAILY 11/18/18 Venlafaxine HCl ER [Effexor Xr -] 150 mg PO DAILY 11/18/18 Pantoprazole Sodium 40 mg PO DAILY #90 tablet. 11/21/18 This patient is new to me today: No Emergency Visit: No Critical Care patient: No - Discharge Referral Referred to [facility] Med P.C.: No ATTENDING PHYSICIAN STATEMENT I saw and evaluated the patient. I reviewed the resident's note and discussed the case with the resident. I agree with the resident's findings and plan as documented. SUBJECTIVE: OBJECTIVE: ASSESSMENT AND PLAN:
--- NOTE | 2018-11-24 14:52 | PATH ---
Surgical Pathology Report Patient Name: COLUMBA LUCAS Med. Rec. #: [id number] /Age/Gender: 1935 (Age: 83) / F Account: [id number] Location: [facility] MED/SURG Taken: 11/21/2018 Received: 11/21/2018 Reported: 11/24/2018 Physicians: Kat Olivier M.D. Specimen(s) Received A: SECOND PORTION DUODENUM AND DUODEUM BULB B: ANTRUM Clinical History Upper GI bleed Postoperative diagnosis: Hiatal hernia, ulcer, gastritis Final Diagnosis A. DUODENUM, SECOND PORTION AND DUODENAL BULB, BIOPSY: DUODENAL MUCOSA WITH MILD ACUTE AND CHRONIC DUODENITIS. B. STOMACH, ANTRUM, BIOPSY: GASTRIC ANTRAL MUCOSA WITH MILD CHRONIC GASTRITIS. IMMUNOHISTOCHEMICAL STAIN FOR H. PYLORI IS NEGATIVE. Electronically Signed Kiera Cooper M.D. Gross Description A. Received in formalin, labeled "second portion duodenum and duodenal bulb" are 3 medley, irregular portions of soft tissue measuring 0.3 and 0.5 cm. in greatest dimension. The specimens are submitted in toto in one cassette. B. Received in formalin, labeled "antrum" are 2 medley, irregular portions of soft tissue measuring 0.3 cm. in greatest dimension. The specimens are submitted in toto in one cassette. MLSZ/11/21/2018 sanml/11/21/2018
== END 2018-11-21 18:48 | disposition home or self-care (01) | DRG 378 ==
LOC: FER 12:39 → FM/S 14:42 → J8W 11-19 01:53
PROVIDERS: ADMIT Internal Medicine; ATTEND Internal Medicine
PROC: 0DD78ZX Extraction of Stomach, Pylorus, Via Natural or Artificial Opening Endoscopic, Diagnostic (ICD-10-PCS; 2018-11-21)
PROC: 30233N1 Transfusion of Nonautologous Red Blood Cells into Peripheral Vein, Percutaneous Approach (ICD-10-PCS; principal; 2018-11-21 09:45)
DX: K25.0 Acute gastric ulcer with hemorrhage (principal); D62 Acute posthemorrhagic anemia; E87.2 Acidosis; Z66 Do not resuscitate; K44.9 Diaphragmatic hernia without obstruction or gangrene; T39.395A Adverse effect of other nonsteroidal anti-inflammatory drugs [NSAID], initial encounter; Y92.89 Other specified places as the place of occurrence of the external cause; I10 Essential (primary) hypertension; J44.9 Chronic obstructive pulmonary disease, unspecified; E11.9 Type 2 diabetes mellitus without complications; F32.9 Major depressive disorder, single episode, unspecified; K21.0 Gastro-esophageal reflux disease with esophagitis; E78.5 Hyperlipidemia, unspecified; K57.30 Diverticulosis of large intestine without perforation or abscess without bleeding; Z96.651 Presence of right artificial knee joint; Z87.891 Personal history of nicotine dependence; R13.10 Dysphagia, unspecified; F03.90 Unspecified dementia, unspecified severity, without behavioral disturbance, psychotic disturbance, mood disturbance, and anxiety; Z86.010 Personal history of colon polyps
CPT/HCPCS: 36415; 36430; 36511; 70450-TC; 71045-TC-FY; 80048; 80053; 81003; 82272; 83605; 83690; 84484; 85025; 85610; 85730; 86850; 86900; 86901; 86922; 87040; 87086; 88305-TC; 93005; 99285-25; J0131; J7030; P9038; P9058

== ENCOUNTER 2019-09-02 09:18 | Inpatient (IN) | payer OTHER ==
[2019-09-02] MEDS ORDERED: SODIUM CHLORIDE 1,497 ML IV ONE (09:46)
[2019-09-02 10:15] LABS: BASO % 0.2 % (0-2.0); HEMATOCRIT 24.6 % (32.4-45.2); HEMOGLOBIN 8.3 GM/dl (10.7-15.3); LYMPH % 9.3 % (8-40); MCH 28.2 pg (25.7-33.7); MCHC 33.7 g/dl (32.0-36.0); MEAN CELL VOLUME 83.5 fl (80-96); MEAN PLT VOLUME 7.9 fl (7.5-11.1); MONO % 3.7 % (3.8-10.2); NEUT % 86.8 % (42.8-82.8); PLATELET COUNT 322 K/MM3 (134-434); RBC 2.95 M/mm3 (3.60-5.2); RDW 16.3 % (11.6-15.6); WHITE BLOOD COUNT 18.9 K/mm3 (4.0-10.8)
[2019-09-02] MEDS ORDERED: SODIUM CHLORIDE 0.9% 500 ML INFUS.BAG IV ONE (10:16)
[2019-09-02 10:18] LABS: INR 1.18 (0.82-1.09); PROTHROMBIN TIME (PATIENT) 13.2 SEC (10.2-13.0)
[2019-09-02 10:25] LABS: ACTIVATED PTT 25.1 SECONDS (25.2-36.5)
[2019-09-02 10:29] LABS: ALBUMIN 2.7 g/dl (3.4-5.0); BILIRUBIN,TOTAL 0.5 mg/dl (0.2-1); CALCIUM 7.9 mg/dl (8.5-10)
[2019-09-02 10:41] LABS: BILIRUBIN,DIRECT 0.1 mg/dL (0.0-0.2)
[2019-09-02 10:52] LABS: EPITHELIAL CELLS MODERATE /hpf
[2019-09-02 10:59] LABS: BASO % 1.6 % (0-2.0); HEMATOCRIT 22.4 % (32.4-45.2); HEMOGLOBIN 7.3 GM/dl (10.7-15.3); LYMPH % 7.7 % (8-40); MCH 26.7 pg (25.7-33.7); MCHC 32.3 g/dl (32.0-36.0); MEAN CELL VOLUME 82.7 fl (80-96); MEAN PLT VOLUME 7.7 fl (7.5-11.1); MONO % 6.2 % (3.8-10.2); NEUT % 84.5 % (42.8-82.8); PLATELET COUNT 288 K/MM3 (134-434); RBC 2.71 M/mm3 (3.60-5.2); RDW 16.1 % (11.6-15.6); WHITE BLOOD COUNT 15.9 K/mm3 (4.0-10.8)
[2019-09-02] MEDS ORDERED: PANTOPRAZOLE SODIUM 40 MG VIAL IVPUSH ONE (11:28)
[2019-09-02] MEDS ORDERED: CEFTRIAXONE 1,000 MG in DEXTROSE 5%-WATER - 50 ML IVPB ONE (11:28)
[2019-09-02] MEDS ORDERED: PANTOPRAZOLE SODIUM 40 MG VIAL ONE (11:37)
[2019-09-02 12:09] LABS: VENOUS BASE EXCESS -12.5 mmol/L (-2-2); VENOUS O2 SATURATION 50.4 % (70-80); VENOUS PCO2 48.7 mmHg (38-52)
[2019-09-02 12:13] LABS: ARTERIAL BLOOD GAS BASE EXCESS -11.8 mmol/L (-2-2); ARTERIAL BLOOD GAS PO2 175.6 mmHg (80-100); ARTERIAL BLOOD GAS pH 7.253 (7.350-7.450)
[2019-09-02 12:16] LABS: CARBOXYHEMOGLOBIN 0.8 % (0-2)
[2019-09-02 12:19] LABS: VENOUS PH 7.137 (7.310-7.410)
[2019-09-02 13:57] VITALS: BMI 24.3
[2019-09-02] MEDS: LACTATED RINGERS SOLUTION 1,000 ML/1,000 ML INFUS.BAG IV SCH (16:01)
[2019-09-02] MEDS: PANTOPRAZOLE SODIUM 80 MG in SODIUM CHLORIDE 100 ML IVPB SCH (16:01)
[2019-09-02 18:33] LABS: BASO % 0.2 % (0-2.0); HEMATOCRIT 28.9 % (32.4-45.2); HEMOGLOBIN 9.2 GM/dL (10.7-15.3); LYMPH % 11.7 % (8-40); MCH 27.9 pg (25.7-33.7); MCHC 31.9 g/dl (32.0-36.0); MEAN CELL VOLUME 87.5 fl (80-96); MEAN PLT VOLUME 7.9 fl (7.5-11.1); MONO % 10.3 % (3.8-10.2); NEUT % 77.8 % (42.8-82.8); PLATELET COUNT 203 K/MM3 (134-434); RDW 16.1 % (11.6-15.6); WHITE BLOOD COUNT 12.7 K/mm3 (4.0-10.0)
[2019-09-02 18:59] LABS: ALBUMIN 2.5 g/dl (3.4-5.0); BILIRUBIN,TOTAL 0.2 mg/dL (0.2-1); BLOOD UREA NITROGEN 95.9 mg/dL (7-18); CALCIUM 7.7 mg/dL (8.5-10.1); CREATININE 1.3 mg/dL (0.55-1.3); POTASSIUM 4.8 mmol/L (3.5-5.1)
[2019-09-02] MEDS ORDERED: CEFTRIAXONE 1 GM in DEXTROSE 5%-WATER - 50 ML IVPB ONE (19:15)
[2019-09-02] MEDS ORDERED: cefTRIAXone SODIUM 1 GM VIAL ONE (19:43)
[2019-09-02] MEDS ORDERED: DEXTROSE 5%-WATER - 50 ML IVPB ONE (19:43)
[2019-09-02] MEDS ORDERED: CHLORHEXIDINE GLUCONATE 4% CLEANSER FOR DECOLONIZATION TP SCH (22:00)
[2019-09-02] MEDS: MUPIROCIN 2% TOPICAL OINTMENT FOR DECOLONIZATION NS SCH (22:58)
[2019-09-03] MEDS: PANTOPRAZOLE SODIUM 80 MG in SODIUM CHLORIDE 100 ML IVPB SCH ×3 (00:25→21:26)
[2019-09-03 07:53] LABS: ALBUMIN 2.4 g/dl (3.4-5.0); CALCIUM 8.2 mg/dL (8.5-10.1); CREATININE 0.9 mg/dL (0.55-1.3); MAGNESIUM 2.1 mg/dL (1.8-2.4); POTASSIUM 4.7 mmol/L (3.5-5.1)
[2019-09-03 07:57] LABS: BILIRUBIN,TOTAL 0.2 mg/dL (0.2-1); TOT PROT 4.8 g/dl (6.4-8.2)
[2019-09-03 08:48] LABS: BASO % 0.2 % (0-2.0); EOS % 0.1 % (0-4.5); HEMATOCRIT 25.5 % (32.4-45.2); HEMOGLOBIN 8.2 GM/dL (10.7-15.3); LYMPH % 11.5 % (8-40); MCH 28.2 pg (25.7-33.7); MCHC 32.3 g/dl (32.0-36.0); MEAN CELL VOLUME 87.1 fl (80-96); MEAN PLT VOLUME 8.3 fl (7.5-11.1); MONO % 12.2 % (3.8-10.2); PLATELET COUNT 179 K/MM3 (134-434); RBC 2.92 M/mm3 (3.60-5.2); RDW 16.2 % (11.6-15.6); WHITE BLOOD COUNT 10.6 K/mm3 (4.0-10.0)
[2019-09-03] MEDS: MUPIROCIN 2% TOPICAL OINTMENT FOR DECOLONIZATION NS SCH ×2 (10:35→12:28)
[2019-09-03] MEDS: LACTATED RINGERS SOLUTION 1,000 ML/1,000 ML INFUS.BAG IV SCH ×2 (14:28→20:49)
[2019-09-03] MEDS ORDERED: DEXTROSE 5%-WATER - 50 ML IVPB ONE (17:11)
[2019-09-03] MEDS ORDERED: cefTRIAXone SODIUM 1 GM VIAL ONE (17:11)
[2019-09-03 17:20] LABS: HEMATOCRIT 24.1 % (32.4-45.2); HEMOGLOBIN 7.7 GM/dL (10.7-15.3); MEAN CELL VOLUME 87.5 fl (80-96); MEAN PLT VOLUME 8.1 fl (7.5-11.1); PLATELET COUNT 159 K/MM3 (134-434); RBC 2.76 M/mm3 (3.60-5.2); RDW 16.5 % (11.6-15.6); WHITE BLOOD COUNT 10.6 K/mm3 (4.0-10.0)
[2019-09-03] MEDS ORDERED: CEFTRIAXONE 1 GM in DEXTROSE 5%-WATER - 50 ML IVPB SCH (19:00)
[2019-09-04] MEDS ORDERED: PANTOPRAZOLE SODIUM 80 MG in SODIUM CHLORIDE 100 ML IVPB SCH (06:15)
[2019-09-04 06:51] LABS: BASO % 0.3 % (0-2.0); EOS % 0.3 % (0-4.5); HEMATOCRIT 24.9 % (32.4-45.2); HEMOGLOBIN 8.3 GM/dL (10.7-15.3); LYMPH % 13.5 % (8-40); MCH 28.7 pg (25.7-33.7); MCHC 33.2 g/dl (32.0-36.0); MEAN CELL VOLUME 86.3 fl (80-96); MEAN PLT VOLUME 7.9 fl (7.5-11.1); MONO % 13.7 % (3.8-10.2); NEUT % 72.2 % (42.8-82.8); PLATELET COUNT 133 K/MM3 (134-434); RBC 2.88 M/mm3 (3.60-5.2); RDW 15.8 % (11.6-15.6); WHITE BLOOD COUNT 8.5 K/mm3 (4.0-10.0)
[2019-09-04] MEDS: PANTOPRAZOLE SODIUM 80 MG in SODIUM CHLORIDE 100 ML IVPB SCH ×3 (06:51→15:59)
[2019-09-04 07:23] LABS: POTASSIUM 4.1 mmol/L (3.5-5.1)
[2019-09-04 07:32] LABS: ALBUMIN 2.2 g/dl (3.4-5.0); BILIRUBIN,TOTAL 0.4 mg/dL (0.2-1); CALCIUM 8.2 mg/dL (8.5-10.1); CREATININE 0.6 mg/dL (0.55-1.3); PHOSPHOROUS 2.1 mg/dL (2.5-4.9); TOT PROT 4.6 g/dl (6.4-8.2)
[2019-09-04 07:33] LABS: BLOOD UREA NITROGEN 28.2 mg/dL (7-18)
[2019-09-04] MEDS ORDERED: cefTRIAXone SODIUM 1 GM VIAL ONE (13:41)
[2019-09-04] MEDS ORDERED: DEXTROSE 5%-WATER - 50 ML IVPB ONE (13:42)
[2019-09-04] MEDS: CEFTRIAXONE 1 GM in DEXTROSE 5%-WATER - 50 ML IVPB SCH (13:53)
[2019-09-04] MEDS ORDERED: ACETAMINOPHEN 325 MG TABLET (FP) PO PRN (16:27)
[2019-09-04] MEDS: LACTATED RINGERS SOLUTION 1,000 ML/1,000 ML INFUS.BAG IV SCH (21:15)
[2019-09-04] MEDS: PANTOPRAZOLE 40 MG TABLET PO SCH (21:15)
[2019-09-05] MEDS ORDERED: PEG 3350/NA SULF BICARB CL/KCL 4000 ML SOLN.RECON PO ONE (09:00)
[2019-09-05] MEDS ORDERED: cefTRIAXone SODIUM 1 GM VIAL ONE (09:12)
[2019-09-05] MEDS ORDERED: DEXTROSE 5%-WATER - 50 ML IVPB ONE (09:13)
[2019-09-05] MEDS: CEFTRIAXONE 1 GM in DEXTROSE 5%-WATER - 50 ML IVPB SCH (09:33)
[2019-09-05] MEDS: LACTATED RINGERS SOLUTION 1,000 ML/1,000 ML INFUS.BAG IV SCH ×2 (09:33→21:18)
[2019-09-05] MEDS: PANTOPRAZOLE 40 MG TABLET PO SCH ×2 (10:05→21:16)
[2019-09-05] MEDS ORDERED: ONDANSETRON 4 MG/2 ML VIAL IVPUSH ONE (14:09)
[2019-09-05] MEDS: amLODIPine BESYLATE 5 MG TABLET (FP) PO SCH (15:01)
[2019-09-05 17:40] LABS: BASO % 0.5 % (0-2.0); EOS % 0.5 % (0-4.5); HEMATOCRIT 24.9 % (32.4-45.2); HEMOGLOBIN 8.4 GM/dL (10.7-15.3); LYMPH % 19.8 % (8-40); MCH 29.1 pg (25.7-33.7); MCHC 33.8 g/dl (32.0-36.0); MEAN CELL VOLUME 86.1 fl (80-96); MEAN PLT VOLUME 8.3 fl (7.5-11.1); MONO % 11.9 % (3.8-10.2); NEUT % 67.3 % (42.8-82.8); PLATELET COUNT 170 K/MM3 (134-434); RDW 15.9 % (11.6-15.6); WHITE BLOOD COUNT 7.7 K/mm3 (4.0-10.0)
[2019-09-05] MEDS ORDERED: BISACODYL 5 MG TABLET.DR (FP) PO ONE (18:00)
[2019-09-05 18:13] LABS: ALBUMIN 2.2 g/dl (3.4-5.0); BILIRUBIN,TOTAL 0.2 mg/dL (0.2-1); CALCIUM 7.7 mg/dL (8.5-10.1); CREATININE 0.5 mg/dL (0.55-1.3); MAGNESIUM 1.6 mg/dL (1.8-2.4); POTASSIUM 3.3 mmol/L (3.5-5.1); TOT PROT 4.8 g/dl (6.4-8.2)
[2019-09-05] MEDS ORDERED: MAGNESIUM OXIDE 400 MG TABLET (FP) PO ONE (18:15)
[2019-09-05] MEDS ORDERED: POTASSIUM CHLORIDE ORAL LIQUID 20 MEQ/15 ML PO ONE (18:15)
[2019-09-05] MEDS: MAGNESIUM CITRATE 300 ML BOTTLE PO ONE ×2 (21:15→21:18)
[2019-09-05] MEDS: GABAPENTIN 100 MG CAPSULE PO SCH (21:16)
[2019-09-06 08:47] LABS: INR 1.08 (0.83-1.09); PROTHROMBIN TIME (PATIENT) 12.7 SEC (9.7-13.0)
[2019-09-06 08:49] LABS: ACTIVATED PTT 28.7 SECONDS (25.2-36.5)
[2019-09-06] MEDS ORDERED: IRON SUCROSE INJECTION 200 MG in SODIUM CHLORIDE 90 ML IVPB ONE (09:00)
[2019-09-06] MEDS ORDERED: PT OWN MED DRAWER 7, Y5N ONE (09:48)
[2019-09-06] MEDS: SUCRALFATE 1 GM/10 ML UNIT DOSE CUPS PO SCH ×2 (09:52→21:09)
[2019-09-06] MEDS: GABAPENTIN 100 MG CAPSULE PO SCH ×2 (09:52→21:09)
[2019-09-06] MEDS: PANTOPRAZOLE 40 MG TABLET PO SCH ×2 (09:52→21:09)
[2019-09-06] MEDS: amLODIPine BESYLATE 5 MG TABLET (FP) PO SCH (09:52)
[2019-09-06] MEDS: VENLAFAXINE HCL 75 MG E.R. CAPSULES PO SCH (09:54)
[2019-09-06] MEDS ORDERED: VENLAFAXINE HCL 150 MG E.R. CAPSULE PO SCH (10:00)
[2019-09-06] MEDS ORDERED: VENLAFAXINE HCL ER 150 MG, VENLAFAXINE HCL ER 75 MG PO SCH (10:00)
[2019-09-06 14:06] LABS: BASO % 0.6 % (0-2.0); EOS % 0.9 % (0-4.5); HEMATOCRIT 28.4 % (32.4-45.2); HEMOGLOBIN 9.3 GM/dL (10.7-15.3); LYMPH % 18.7 % (8-40); MCH 28.1 pg (25.7-33.7); MCHC 32.9 g/dl (32.0-36.0); MEAN CELL VOLUME 85.4 fl (80-96); MEAN PLT VOLUME 7.7 fl (7.5-11.1); MONO % 13.5 % (3.8-10.2); NEUT % 66.3 % (42.8-82.8); PLATELET COUNT 231 K/MM3 (134-434); RBC 3.32 M/mm3 (3.60-5.2); RDW 15.6 % (11.6-15.6); WHITE BLOOD COUNT 7.3 K/mm3 (4.0-10.0)
[2019-09-06 14:35] LABS: ALBUMIN 2.4 g/dl (3.4-5.0); BILIRUBIN,TOTAL 0.2 mg/dL (0.2-1); BLOOD UREA NITROGEN 8.6 mg/dL (7-18); CALCIUM 7.9 mg/dL (8.5-10.1); CREATININE 0.6 mg/dL (0.55-1.3); TOT PROT 5.1 g/dl (6.4-8.2)
[2019-09-06] MEDS: KCL 10 MEQ IVPB 10 MEQ/100 ML INFUS.BAG IVPB SCH ×2 (15:10→16:38)
[2019-09-07 08:11] LABS: BASO % 0.6 % (0-2.0); EOS % 2.1 % (0-4.5); HEMATOCRIT 29.5 % (32.4-45.2); HEMOGLOBIN 9.8 GM/dL (10.7-15.3); LYMPH % 21.8 % (8-40); MCH 28.5 pg (25.7-33.7); MCHC 33.2 g/dl (32.0-36.0); MEAN CELL VOLUME 85.9 fl (80-96); MEAN PLT VOLUME 8.2 fl (7.5-11.1); MONO % 12.8 % (3.8-10.2); NEUT % 62.7 % (42.8-82.8); PLATELET COUNT 259 K/MM3 (134-434); RBC 3.44 M/mm3 (3.60-5.2); RDW 15.9 % (11.6-15.6); RETICULOCYTES 3.52 % (0.5-1.5); WHITE BLOOD COUNT 7.7 K/mm3 (4.0-10.0)
[2019-09-07 08:26] LABS: ALBUMIN 2.5 g/dl (3.4-5.0); BILIRUBIN,TOTAL 0.4 mg/dL (0.2-1); BLOOD UREA NITROGEN 8.9 mg/dL (7-18); CALCIUM 8.3 mg/dL (8.5-10.1); CREATININE 0.6 mg/dL (0.55-1.3); MAGNESIUM 2.2 mg/dL (1.8-2.4); POTASSIUM 3.4 mmol/L (3.5-5.1); TOT PROT 5.2 g/dl (6.4-8.2)
[2019-09-07] MEDS ORDERED: KCL 10 MEQ IVPB 10 MEQ/100 ML INFUS.BAG IVPB SCH (09:00)
[2019-09-07] MEDS: PANTOPRAZOLE 40 MG TABLET PO SCH ×2 (10:00→21:57)
[2019-09-07] MEDS: VENLAFAXINE HCL 75 MG E.R. CAPSULES PO SCH (10:00)
[2019-09-07] MEDS: GABAPENTIN 100 MG CAPSULE PO SCH ×2 (10:00→21:57)
[2019-09-07] MEDS: SUCRALFATE 1 GM/10 ML UNIT DOSE CUPS PO SCH ×2 (10:00→21:57)
[2019-09-07] MEDS: amLODIPine BESYLATE 5 MG TABLET (FP) PO SCH (10:19)
[2019-09-07] MEDS: NYSTATIN 100,000 UNIT/GM TOPICAL CREAM 15 GM TUBE TP SCH ×2 (15:00→21:57)
[2019-09-08] MEDS ORDERED: PT OWN MED DRAWER 7, Y5N ONE (08:51)
[2019-09-08] MEDS: amLODIPine BESYLATE 5 MG TABLET (FP) PO SCH (09:03)
[2019-09-08] MEDS: PANTOPRAZOLE 40 MG TABLET PO SCH (09:03)
[2019-09-08] MEDS: GABAPENTIN 100 MG CAPSULE PO SCH (09:03)
[2019-09-08] MEDS: SUCRALFATE 1 GM/10 ML UNIT DOSE CUPS PO SCH (09:03)
[2019-09-08] MEDS: NYSTATIN 100,000 UNIT/GM TOPICAL CREAM 15 GM TUBE TP SCH (09:03)
[2019-09-08] MEDS: VENLAFAXINE HCL 75 MG E.R. CAPSULES PO SCH (09:05)
[2019-09-08 10:10] VITALS: BP 141/84; PULSE 97; TEMP 98
[2019-09-08 12:00] LABS: BASO % 0.7 % (0-2.0); EOS % 0.9 % (0-4.5); HEMATOCRIT 34.1 % (32.4-45.2); HEMOGLOBIN 11.4 GM/dL (10.7-15.3); LYMPH % 15.2 % (8-40); MCH 28.9 pg (25.7-33.7); MCHC 33.4 g/dl (32.0-36.0); MEAN CELL VOLUME 86.3 fl (80-96); MEAN PLT VOLUME 7.5 fl (7.5-11.1); MONO % 9.7 % (3.8-10.2); NEUT % 73.5 % (42.8-82.8); PLATELET COUNT 420 K/MM3 (134-434); RBC 3.95 M/mm3 (3.60-5.2); RDW 15.5 % (11.6-15.6); WHITE BLOOD COUNT 12.4 K/mm3 (4.0-10.0)
[2019-09-08 12:28] LABS: ALBUMIN 2.7 g/dl (3.4-5.0); BILIRUBIN,TOTAL 0.3 mg/dL (0.2-1); BLOOD UREA NITROGEN 9.8 mg/dL (7-18); CALCIUM 8.7 mg/dL (8.5-10.1); CREATININE 0.7 mg/dL (0.55-1.3); MAGNESIUM 2.2 mg/dL (1.8-2.4); POTASSIUM 3.3 mmol/L (3.5-5.1); TOT PROT 5.8 g/dl (6.4-8.2)
[2019-09-08] MEDS ORDERED: POTASSIUM CHLORIDE TABS 20 MEQ TABLET.ER (FP) PO ONE (13:25)
[2019-09-08 16:18] LABS: BASO % 0.4 % (0-2.0); EOS % 1.8 % (0-4.5); HEMATOCRIT 32.3 % (32.4-45.2); HEMOGLOBIN 10.7 GM/dL (10.7-15.3); LYMPH % 18.7 % (8-40); MCH 28.7 pg (25.7-33.7); MCHC 33.1 g/dl (32.0-36.0); MEAN CELL VOLUME 86.9 fl (80-96); MEAN PLT VOLUME 7.7 fl (7.5-11.1); NEUT % 67.1 % (42.8-82.8); PLATELET COUNT 388 K/MM3 (134-434); RBC 3.72 M/mm3 (3.60-5.2); RDW 15.9 % (11.6-15.6)
[2019-09-09] MEDS ORDERED: POTASSIUM CHLORIDE TABS 20 MEQ TABLET.ER (FP) PO SCH (10:00)
== END 2019-09-08 18:36 | DRG 377 ==
LOC: FER 09:18 → JICU 13:00 → J4S 09-03 21:00
PROVIDERS: ADMIT Internal Medicine Pulmonary Disease; ATTEND Nurse Practitioner Family
PROC: 30233N1 Transfusion of Nonautologous Red Blood Cells into Peripheral Vein, Percutaneous Approach (ICD-10-PCS; 2019-09-02)
PROC: 0DB78ZX Excision of Stomach, Pylorus, Via Natural or Artificial Opening Endoscopic, Diagnostic (ICD-10-PCS; principal; 2019-09-04 12:00)
DX: K25.4 Chronic or unspecified gastric ulcer with hemorrhage (principal); J96.01 Acute respiratory failure with hypoxia; N17.9 Acute kidney failure, unspecified; E87.2 Acidosis; D62 Acute posthemorrhagic anemia; K31.89 Other diseases of stomach and duodenum; K44.9 Diaphragmatic hernia without obstruction or gangrene; D12.6 Benign neoplasm of colon, unspecified; K57.90 Diverticulosis of intestine, part unspecified, without perforation or abscess without bleeding; I10 Essential (primary) hypertension; N13.9 Obstructive and reflux uropathy, unspecified; E78.5 Hyperlipidemia, unspecified; E87.6 Hypokalemia; F41.8 Other specified anxiety disorders; E11.9 Type 2 diabetes mellitus without complications; M54.9 Dorsalgia, unspecified; K64.8 Other hemorrhoids; J44.9 Chronic obstructive pulmonary disease, unspecified; K21.0 Gastro-esophageal reflux disease with esophagitis; I95.9 Hypotension, unspecified; K55.20 Angiodysplasia of colon without hemorrhage
CPT/HCPCS: 36415; 36430; 36511; 36600; 70450-TC; 71045-TC-FY; 71250-TC; 74176-TC; 74220-TC-FY; 74240-TC-FY; 80048; 80053; 81003; 81015; 82248; 82272; 82375; 82550; 82728; 82803; 83050; 83605; 83615; 83735; 84100; 84484; 85025; 85027; 85044; 85379; 85610; 85730; 86140; 86850; 86900; 86901; 86922; 87040; 87086; 87324; 87449; 88305-TC; 93005; 97116-GP; 97162-GP; 99291; 99292; J1756; P9038; P9058; U0003